=== PATIENT | female | born 1990 | race Caucasian/White ===

== ENCOUNTER 2018-07-13 18:24 | Emergency (ER) | payer OTHER | END 2018-07-13 19:12 | disposition home or self-care (01) | LOC: FTE 18:24 | DX: R21 Rash and other nonspecific skin eruption (principal) | CPT/HCPCS: 99282; Z7502 ==

== ENCOUNTER 2018-12-31 05:19 | Inpatient (IN) | payer OTHER ==
[2018-12-31] MEDS ORDERED: CEFAZOLIN 1 GM INJ (07:00)
[2018-12-31] MEDS ORDERED: DESFLURANE 15 MIN (07:00)
[2018-12-31] MEDS ORDERED: PROPOFOL 200 MG INJ (07:00)
[2018-12-31] MEDS ORDERED: MIDAZOLAM 1 MG/ML 2 ML INJ (07:18)
[2018-12-31] MEDS ORDERED: METOCLOPRAMIDE 10 MG INJ (07:18)
[2018-12-31] MEDS ORDERED: KETOROLAC 30 MG INJ (07:18)
[2018-12-31] MEDS ORDERED: morphine SULFATE/PF (10 MG/10 ML) INJ (07:18)
[2018-12-31] MEDS ORDERED: FENTAnyl 50 MCG/ML VIAL (07:29)
[2018-12-31] MEDS ORDERED: ROPIVACAINE 0.5 % 30 ML VIAL (07:38)
[2018-12-31] MEDS ORDERED: PHENYLephrine 10 MG INJ (07:41)
[2018-12-31] MEDS ORDERED: ONDANSETRON 4 MG INJ (08:04)
[2018-12-31] MEDS: LACTATED RINGER'S 1,000 ML IV ×2 (08:30→16:06)
[2018-12-31] MEDS ORDERED: MEPERIDINE 25 MG INJ IV (09:00)
[2018-12-31] MEDS ORDERED: DIPHENHYDRAMINE 50 MG INJ IV (09:00)
[2018-12-31] MEDS ORDERED: KETOROLAC 30 MG INJ IV (09:00)
[2018-12-31] MEDS ORDERED: HYDROmorphONE 1 MG/5 ML IV SYRINGE IV ×3 (09:00)
[2018-12-31] MEDS ORDERED: FENTAnyl 50 MCG/ML VIAL IV ×3 (09:00)
[2018-12-31] MEDS ORDERED: OXYCODONE/ACETAMINOPHEN (5/325) TAB PO ×2 (09:00)
[2018-12-31] MEDS ORDERED: ONDANSETRON 4 MG INJ IV ×2 (09:00)
[2019-01-01] MEDS: LACTATED RINGER'S 1,000 ML IV ×2 (02:09→10:10)
[2019-01-01] MEDS: MAGNESIUM HYDROXIDE 30ML CUP PO (05:18)
[2019-01-01] MEDS: BISACODYL 10 MG SUPP PR (05:18)
[2019-01-01 05:34] LABS: WHITE BLOOD COUNT 8.1 10^3/ul (4.8-10.8)
[2019-01-01 05:34] LABS: ADD MAN DIFF? NO; BASOPHILS % 0.4 % (0.0-2.0); EOSINOPHILS # 0.1 10^3/ul (0.0-0.5); EOSINOPHILS % 1.7 % (0.0-7.0); HEMATOCRIT 36.5 % (37.0-47.0); LYMPHOCYTES # 2.2 10^3/ul (0.8-2.9); LYMPHOCYTES % 27.8 % (15.0-51.0); MEAN CORPUSCULAR HEMOGLOBIN 29.1 pg (29.0-33.0); MEAN CORPUSCULAR HGB CONC 32.9 g/dl (32.0-37.0); MEAN CORPUSCULAR VOLUME 88.6 fl (82.0-101.0); MEAN PLATELET VOLUME 10.1 fl (7.4-10.4); MONOCYTE # 0.6 10^3/ul (0.3-0.9); MONOCYTES % 7.5 % (0.0-11.0); NEUTROPHILS % 62.4 % (39.0-77.0); PLATELET COUNT 216 10^3/UL (140-415); RED BLOOD COUNT 4.12 10^6/ul (4.20-5.40); RED CELL DISTRIBUTION WIDTH 12.5 % (11.5-14.5)
[2019-01-01] MEDS: HYDROCODONE/APAP (5/325) TAB PO ×3 (05:34→19:56)
[2019-01-01 05:51] LABS: ALANINE AMINOTRANSFERASE 54 IU/L (13-69); ALBUMIN 3.7 g/dl (3.3-4.9); ALBUMIN/GLOBULIN RATIO 1.19; ALKALINE PHOSPHATASE 76 IU/L (42-121); ANION GAP 8 (5-13); ASPARTATE AMINO TRANSFERASE 45 IU/L (15-46); BILIRUBIN,INDIRECT 0.7 mg/dl (0-1.1); BILIRUBIN,TOTAL 0.7 mg/dl (0.2-1.3); BLOOD UREA NITROGEN 11 mg/dl (7-20); CALCIUM 8.7 mg/dl (8.4-10.2); CARBON DIOXIDE 29 mmol/L (21-31); CHLORIDE 103 mmol/L (97-110); CREATININE 0.53 mg/dl (0.44-1.00); Estimated GFR > 60 mL/min (>60); GLUCOSE 80 mg/dl (70-220); POTASSIUM 4.5 mmol/L (3.5-5.1); SODIUM 140 mmol/L (135-144); TOTAL PROTEIN 6.8 g/dl (6.1-8.1)
[2019-01-01] MEDS ORDERED: IBUPROFEN 800 MG TAB PO (09:00)
[2019-01-01 11:01] LABS: ADD UMIC YES; UR AMORPHOUS CRYSTAL FEW /HPF (NONE SEEN); UR ASCORBIC ACID NEGATIVE (NEGATIVE); UR BACTERIA FEW /HPF (NONE SEEN); UR BILIRUBIN (Dip) NEGATIVE (NEGATIVE); UR BLOOD (Dip) 2+ mg/dL (NEGATIVE); UR CLARITY SLIGHTLY CLOUDY (CLEAR); UR COLOR YELLOW (YELLOW); UR GLUCOSE (Dip) NEGATIVE (NEGATIVE); UR KETONES (Dip) 1+ mg/dL (NEGATIVE); UR LEUKOCYTE ESTERASE (Dip) NEGATIVE Leu/ul (NEGATIVE); UR MUCUS FEW /HPF (NONE SEEN); UR NITRITE (Dip) NEGATIVE (NEGATIVE); UR RBC 21 /HPF (0-5); UR SPECIFIC GRAVITY (Dip) 1.013 (1.003-1.030); UR TOTAL PROTEIN (Dip) NEGATIVE (NEGATIVE); UR UROBILINOGEN (Dip) NEGATIVE (NEGATIVE); UR WBC 6 /HPF (0-5)
[2019-01-01] MEDS ORDERED: BISACODYL 10 MG SUPP PR (17:00)
[2019-01-01] MEDS ORDERED: MAGNESIUM HYDROXIDE 30ML CUP PO (17:00)
== END 2019-01-01 20:15 | disposition home or self-care (01) | DRG 743 ==
LOC: REC 05:19 → MS1 10:08
PROVIDERS: Obstetrics & Gynecology
PROC: 0UB10ZZ Excision of Left Ovary, Open Approach (ICD-10-PCS; principal; 2018-12-31 07:17)
PROC: 0U520ZZ Destruction of Bilateral Ovaries, Open Approach (ICD-10-PCS; 2018-12-31 07:17)
DX: D27.1 Benign neoplasm of left ovary (principal); E28.2 Polycystic ovarian syndrome
CPT/HCPCS: 80053; 81001; 84702; 84703; 85025; 86850; 86900; 86901; 87086; 88304